=== PATIENT | male | born 1950 | race Caucasian/White ===

== ENCOUNTER 2023-06-25 06:53 | Emergency (ER) | payer OTHER ==
[~2023-06-25] VITALS: Ht 167.6 cm; Wt 68.2 kg
[2023-06-25 07:04] VITALS: BP 144/71; PULSE 62; RESP 18; TEMP 98
[2023-06-25] MEDS ORDERED: ATOR40TA28 PO (07:12)
[2023-06-25] MEDS ORDERED: LOSA-381 PO (07:12)
[2023-06-25] MEDS ORDERED: LORA10TA7 PO (07:12)
== END 2023-06-25 08:40 | disposition home or self-care (01) ==
LOC: EMS 06:54
DX: K40.90 Unilateral inguinal hernia, without obstruction or gangrene, not specified as recurrent (principal); E78.00 Pure hypercholesterolemia, unspecified; I10 Essential (primary) hypertension; F17.210 Nicotine dependence, cigarettes, uncomplicated
CPT/HCPCS: 99283